=== PATIENT | male | born 1970 | race Caucasian/White ===

== ENCOUNTER 2023-06-13 06:54 | Day surgery (SDC) | payer BC ==
[2023-06-11 14:39] VITALS: BMI 30.7
[2023-06-13] MEDS ORDERED: PROPOFOL 40 ML ONE (08:55)
== END 2023-06-13 09:54 | disposition home or self-care (01) ==
LOC: CSHSDC 06:54
PROVIDERS: ATTEND Internal Medicine Gastroenterology
PROC: 0DBP8ZZ Excision of Rectum, Via Natural or Artificial Opening Endoscopic (ICD-10-PCS; principal; 2023-06-13)
DX: Z12.11 Encounter for screening for malignant neoplasm of colon (principal); D12.8 Benign neoplasm of rectum; K64.9 Unspecified hemorrhoids; I10 Essential (primary) hypertension; Z79.899 Other long term (current) drug therapy
CPT/HCPCS: 88305; J2704